=== PATIENT | female | born 1990 | race Caucasian/White ===

== ENCOUNTER → 2017-03-17 | Outpatient (CLI) | payer MEDICARE, OTHER ==
[~2017-03-17] MED LIST: ALBUTEROL0.63 MG/3 INH; ALPRAZOLAM PO; BENADRYL IVP; BREO ELLIPTA 11 EACH INH; CATAPRES0.3 MG PO; DEXILANT60 MG PO; DIAMOX SEQUELS500 MG PO; DICYCLOMINE HCL20 MG PO; DIVALPROEX SOD500 M1 PO; FIORICET 50-301 EACH PO; HYDROCODON-ACE1 EA14 PO; LAMICTAL5 MG PO; LASIX20 MG PO; LEXAPRO20 MG PO; LIDODERM1 EACH; LOMOTIL 2.5-0.1 EACH PO; LOVENOX100 MG/1 M SUBQ; LUNESTA PO; LYRICA100 MG PO; MELATONIN5 M4 PO; MIRAPEX1 MG PO; NAPROXEN PO; NORMAL SALINE IV; OXYGEN; PHENERGAN25 MG PO; PHENERGAN25 MG/1 ML INJ; VITAMIN C250 M1 PO; ZANAFLEX4 M1 PO; ZOFRAN 4 MG4 MG/2 ML INJ; ZOFRAN PO; ZOFRANODT PO
[2017-03-17 12:56] LABS: HEMATOCRIT 38.2 % (35.0-45.0); HEMOGLOBIN 12.7 gm/dL (12.0-16.0); MEAN CELL VOLUME 88.6 FL (83-96); MEAN CORPUSCULAR HEMOGLOBIN 29.4 PG (28-34); MEAN CORPUSCULAR HGB CONC 33.1 g/dL (30-36); MEAN PLATELET VOLUME 7.4 FL (6.5-11.5); RED BLOOD COUNT 4.32 X10e (3.90-5.30); RED CELL DISTRIBUTION WIDTH 15.4 % (11.0-15.5); WHITE BLOOD COUNT 7.5 X10e3 (4.0-10.5)
[2017-03-17 13:14] LABS: PARTIAL THROMBOPLASTIN TIME 30.8 SECONDS (23.5-31.3); PROTHROMBIN TIME (PATIENT) 10.7 SECONDS (9.6-11.5)
== END | disposition home or self-care (01) ==
LOC: CIVR 12:18
PROVIDERS: Ophthalmology
DX: R51 Headache (principal); Z79.01 Long term (current) use of anticoagulants
CPT/HCPCS: 36415; 85027; 85610; 85730

== ENCOUNTER → 2017-03-20 | Outpatient (CLI) | payer MEDICARE, OTHER ==
--- NOTE | ~2017-03-20 | XA198 ---
[facility] A Service of [facility] RADIOLOGY TEXT RESULTS PATIENT: PEGGY ROSE LOCATION: [facility] : 89 UNIT #: [id number] AGE: [address]: Souleymane Renae MD SEX: F ORDER DR: [id number] [facility] [address] [place], [place] [address] [id number] O MR#: [id number] Acc #: [id number] NAME: PEGGY ROSE : 1990 SEX: F STUDY DATE/TIME: 03/20/2017 8:49 UNIT: [facility] ROOM: STUDY DESCRIPTION: XA Spinal Puncture Attending Physician: Souleymane Renae M.D. Ordering Physician: Souleymane Renae M.D. Primary Care Physician: Africa Wong M.D. MEDICAL IMAGING REPORT This report is preliminary unless electronic signature is present EXAM Lumbar puncture under fluoroscopy. HISTORY Headaches and vision changes with acute vision loss. Normal MRI brain. PROCEDURE The patient was placed in the prone position in the angio suite. A site was chosen and at the L3-4 level. The skin was cleansed with chlorhexidine and draped. A 20-gauge spinal needle was advanced into the lumbar subarachnoid space and opening pressure was estimated at 41 cm of water. Approximately 20 mL of clear CSF was collected in 4 tubes. Closing pressure was measured at 33 cm of water. The patient was sent to the short-stay unit, where she will be monitored for 4 hours prior to discharge. Fluoro time 0.6 minutes. Exposure 52 mGy and 1 spot radiograph obtained. CONCLUSION Elevated opening and closing pressures at 41 and 33 cm of water. This is estimated due to the positioning of the patient. The CSF itself appears normal. Dictated by... Evangelista Gallegos M.D. THIS IS AN ELECTRONICALLY VERIFIED REPORT Evangelista Gallegos M.D. at 03/20/2017 4:52 PM YULIET/lesley [facility] A Service of [facility] RADIOLOGY TEXT RESULTS PATIENT: PEGGY ROSE LOCATION: [facility] #: [id number] : [birth year] UNIT #: [id number] AGE: [address]: Souleymane Renae MD SEX: F ORDER DR: TD: 03/20/2017 14:42 JOB #: [id number] MEDICAL IMAGING REPORT Page 1 of 1 COPY
[2017-03-20 07:35] LABS: BASOPHIL% 0.7 % (0-2.5); EOSINOPHIL# 0.1 X10e3 (0-0.7); EOSINOPHIL% 1.6 % (0.0-7.0); HEMATOCRIT 36.7 % (35.0-45.0); HEMOGLOBIN 11.9 gm/dL (12.0-16.0); LYMPHOCYTE# 1.5 X10e3 (1.0-3.5); LYMPHOCYTE% 22.9 % (17.0-45.0); MEAN CELL VOLUME 89.5 FL (83-96); MEAN CORPUSCULAR HEMOGLOBIN 29.1 PG (28-34); MEAN CORPUSCULAR HGB CONC 32.5 g/dL (30-36); MEAN PLATELET VOLUME 7.3 FL (6.5-11.5); MONOCYTE# 0.4 X10e3 (0-1.0); MONOCYTE% 6.5 % (3.0-12.0); NEUTROPHIL# 4.4 X10e3 (1.5-7.1); NEUTROPHIL% 68.3 % (40-75); PLATELET COUNT 269 X10e3 (140-420); RED CELL DISTRIBUTION WIDTH 15.3 % (11.0-15.5); WHITE BLOOD COUNT 6.5 X10e3 (4.0-10.5)
[2017-03-20 07:40] LABS: DIFF IND NO
[2017-03-20 07:53] LABS: PROTHROMBIN TIME (PATIENT) 10.8 SECONDS (9.6-11.5)
[2017-03-20 08:00] LABS: PARTIAL THROMBOPLASTIN TIME 68.8 SECONDS (23.5-31.3)
== END | disposition home or self-care (01) ==
LOC: CIVR 06:44
PROVIDERS: Ophthalmology
PROC: 009U3ZZ Drainage of Spinal Canal, Percutaneous Approach (ICD-10-PCS; principal; 2017-03-20)
DX: H54.7 Unspecified visual loss (principal); R51 Headache
CPT/HCPCS: 77003; 85025; 85610; 85730; C1713

== ENCOUNTER → 2017-03-23 | Outpatient (CLI) | payer MEDICARE, OTHER ==
--- NOTE | ~2017-03-23 | XA198 ---
[facility] A Service of [facility] RADIOLOGY TEXT RESULTS PATIENT: PEGGY ROSE [facility] : 89 UNIT #: [id number] AGE: [address]: Seven Mondragon II, MD SEX: F ORDER DR: [id number] [facility]. [place], [place] [address] [id number] O MR#: [id number] Acc #: [id number] NAME: PEGGY ROSE : 1990 SEX: F STUDY DATE/TIME: 03/23/2017 10:11 UNIT: [facility] ROOM: STUDY DESCRIPTION: XA Spinal Puncture Attending Physician: Seven Mondragon II., M.D. Ordering Physician: Seven Mondragon II., M.D. Primary Care Physician: Africa Wong M.D. MEDICAL IMAGING REPORT This report is preliminary unless electronic signature is present PROCEDURE Fluoroscopically-guided lumbar puncture INDICATIONS Pseudotumor cerebri and headaches. Lumbar puncture requested with a large volume CSF removal in order to have the closing pressure be 16 or less. TECHNIQUE Fluoro time 1.1 minutes. Reference air kerma 218 mGy. Risks, benefits and alternatives of procedure were discussed with the patient. Informed consent was obtained. In the procedure room, time-out was performed confirming correct patient and procedure. All elements of maximum sterile-barrier technique utilized according to guidelines appropriate for the procedure. Patient was placed in the lateral position on the fluoroscopy table. Skin overlying the lumbar spine was prepped and draped in the usual sterile fashion. 1% lidocaine was utilized to anesthetize the skin and underlying subcutaneous tissues. Next, under fluoroscopic guidance, a 20-gauge spinal needle was advanced into the CSF space at the L3 level. There was return of clear CSF. Opening pressure was measured and was 15 cm of water. The pressure was then measured 1 more time independently and again was 15 cm of water. Therefore, no fluid was removed. Needle was removed and a sterile dressing was applied. No immediate complications. IMPRESSION Fluoroscopically-guided lumbar puncture as described. The patient was placed in the true lateral position and the opening pressure was 15 cm of water. No fluid was removed. [facility] A Service of [facility] RADIOLOGY TEXT RESULTS PATIENT: PEGGY ROSE LOCATION: [facility] : 89 UNIT #: [id number] AGE: [address]: Seven Mondragon II, MD SEX: F ORDER DR: Dictated by... Marshal Bustillo M.D. THIS IS AN ELECTRONICALLY VERIFIED REPORT Marshal Bustillo M.D. at 03/24/2017 9:32 AM Renetta TD: 03/23/2017 17:18 JOB #: [id number] MEDICAL IMAGING REPORT Page 1 of 1 COPY
[2017-03-23 09:15] LABS: BASOPHIL% 0.5 % (0-2.5); EOSINOPHIL% 0.3 % (0.0-7.0); HEMATOCRIT 39.2 % (35.0-45.0); LYMPHOCYTE# 1.1 X10e3 (1.0-3.5); LYMPHOCYTE% 15.8 % (17.0-45.0); MEAN CELL VOLUME 88.3 FL (83-96); MEAN CORPUSCULAR HEMOGLOBIN 29.3 PG (28-34); MEAN CORPUSCULAR HGB CONC 33.1 g/dL (30-36); MEAN PLATELET VOLUME 6.9 FL (6.5-11.5); MONOCYTE# 0.3 X10e3 (0-1.0); MONOCYTE% 4.8 % (3.0-12.0); NEUTROPHIL# 5.7 X10e3 (1.5-7.1); NEUTROPHIL% 78.6 % (40-75); PLATELET COUNT 275 X10e3 (140-420); RED BLOOD COUNT 4.44 X10e (3.90-5.30); RED CELL DISTRIBUTION WIDTH 14.9 % (11.0-15.5); WHITE BLOOD COUNT 7.3 X10e3 (4.0-10.5)
[2017-03-23 09:16] LABS: DIFF IND NO
[2017-03-23 09:27] LABS: INR 1.2; PARTIAL THROMBOPLASTIN TIME 39.7 SECONDS (23.5-31.3); PROTHROMBIN TIME (PATIENT) 12.4 SECONDS (9.6-11.5)
== END | disposition home or self-care (01) ==
LOC: CIVR 08:54
PROVIDERS: Psychiatry & Neurology Neurology
PROC: 009U3ZX Drainage of Spinal Canal, Percutaneous Approach, Diagnostic (ICD-10-PCS; principal; 2017-03-23)
DX: G93.2 Benign intracranial hypertension (principal); Z79.899 Other long term (current) drug therapy
CPT/HCPCS: 77003; 85025; 85610; 85730; C1713; J1200; J2550

== ENCOUNTER → 2017-03-28 | Outpatient (CLI) | payer MEDICARE, OTHER | END | disposition home or self-care (01) | LOC: CSSDAY 13:59 | DX: R51 Headache (principal); Z79.899 Other long term (current) drug therapy | CPT/HCPCS: 96365; 96374; 96375; J1200; J2550 ==

== ENCOUNTER → 2017-05-10 | Outpatient (CLI) | payer MEDICARE, OTHER ==
--- NOTE | ~2017-05-10 | XA198 ---
[facility] A Service of [facility] RADIOLOGY TEXT RESULTS PATIENT: PEGGY ROSE LOCATION: [facility] : 89 UNIT #: [id number] AGE: [address]: Seven Mondragon II, MD SEX: F ORDER DR: [id number] [id number] [facility]. [place], [place] [address] [id number] O MR#: [id number] Acc #: [id number] NAME: PEGGY ROSE : 1990 SEX: F STUDY DATE/TIME: 05/10/2017 10:18 UNIT: [facility] ROOM: STUDY DESCRIPTION: XA Spinal Puncture Attending Physician: Seven Mondragon II., M.D. Ordering Physician: Seven Mondragon II., M.D. Primary Care Physician: Africa Wong M.D. MEDICAL IMAGING REPORT This report is preliminary unless electronic signature is present EXAM Lumbar puncture under fluoroscopy. DATE OF STUDY 05/10/2017 COMPARISON STUDIES 03/23/2017 HISTORY Pseudotumor cerebri with headaches. PROCEDURE Procedure, attendant risks, and options were discussed with the patient. She understands and wishes to proceed. Prior to the procedure, IV access was obtained in the right antecubital fossa for medications ordered by her physician. This was performed under ultrasound guidance and fluoroscopy. Patient was placed in the prone position and the skin was prepped with chlorhexidine solution and appropriately draped. Utilizing maximal sterile barrier technique and under local anesthesia, a 20-guage spinal needle was inserted in the lumbar subarachnoid space at the L3-4 level. Opening pressure was measured at 39 cm of water. Approximately 35 mL of clear CSF was removed. Closing pressure was 18 cm of water. The patient could not tolerate additional withdrawal of fluid due to worsening headaches. Needle was removed. Hemostasis achieved and the patient was returned to the short stay unit where she will be monitored prior to discharge. Total fluoroscopy time was 1.1 minutes. Total skin exposure estimated at 145 mGy air kerma standard. CONCLUSION Successful therapeutic lumbar puncture, opening pressure of 39, closing [facility] A Service of [facility] RADIOLOGY TEXT RESULTS PATIENT: PEGGY ROSE LOCATION: [facility] : 89 UNIT #: [id number] AGE: [address]: Seven Mondragon II, MD SEX: F ORDER DR: pressure of 18 (the patient would not tolerate additional withdrawal of CSF). Dictated by... Evangelista Gallegos M.D. THIS IS AN ELECTRONICALLY VERIFIED REPORT Evangelista Gallegos M.D. at 05/11/2017 7:14 AM YULIET/lesley TD: 05/10/2017 15:12 JOB #: [id number] MEDICAL IMAGING REPORT Page 1 of 1 COPY
== END | disposition home or self-care (01) ==
LOC: CIVR 09:33
PROC: 009U3ZZ Drainage of Spinal Canal, Percutaneous Approach (ICD-10-PCS; principal; 2017-05-10)
DX: G93.2 Benign intracranial hypertension (principal); Z79.899 Other long term (current) drug therapy
CPT/HCPCS: 77003; C1894; J1200; J2550

== ENCOUNTER → 2017-07-03 | Outpatient (CLI) | payer MEDICARE, OTHER ==
--- NOTE | ~2017-07-03 | XA198 ---
[facility] A Service of [facility] RADIOLOGY TEXT RESULTS PATIENT: PEGGY ROSE LOCATION: [facility] : 89 UNIT #: [id number] AGE: [address]: Seven Mondragon II, MD SEX: F ORDER DR: [id number] [facility]. [place], [place] [address] [id number] O MR#: [id number] Acc #: [id number] NAME: PEGGY ROSE : 1990 SEX: F STUDY DATE/TIME: 07/03/2017 8:06 UNIT: [facility] ROOM: STUDY DESCRIPTION: XA Spinal Puncture Attending Physician: Seven Mondragon II., M.D. Referring Physician: Seven Mondragon II., M.D. Ordering Physician: Seven Mondragon II., M.D. Primary Care Physician: Africa Wong M.D. MEDICAL IMAGING REPORT This report is preliminary unless electronic signature is present EXAM Fluoroscopically-guided lumbar puncture INDICATION Pseudotumor cerebri. The patient's most recent lumbar puncture was performed 05/10/2017. PROCEDURE There risks, benefits, and alternatives to the procedure were explained to the patient, and signed, informed consent was obtained. She was placed prone on the angiographic table was prepped and draped in usual sterile fashion. Time-out was performed as per protocol skin and subcutaneous tissues were anesthetized with buffered lidocaine and a 22-gauge spinal needle was advanced into the spinal canal. Removal of the inner stylet yielded spontaneous drainage of clear CSF opening pressure was found to be 34 I removed approximately 30 mL of clear CSF and closing pressure was 15. Total fluoroscopy time was 0.9 minutes AK was 143 mGy. IMPRESSION Technically successful fluoroscopically-guided lumbar puncture as noted above. Fluoroscopy was used during the procedure and permanent images were saved. Dictated by... Lizz Whitley M.D. THIS IS AN ELECTRONICALLY VERIFIED REPORT Lizz Whitley M.D. at 07/05/2017 4:18 PM AFF/rnr TD: 07/05/2017 13:21 JOB #: [id number] [facility] A Service of [facility] RADIOLOGY TEXT RESULTS PATIENT: PEGGY ROSE LOCATION: [facility] : 89 UNIT #: [id number] AGE: [address]: Seven Mondragon II, MD SEX: F ORDER DR: MEDICAL IMAGING REPORT Page 1 of 1 COPY
[2017-07-03 07:51] LABS: HEMATOCRIT 38.4 % (35.0-45.0); HEMOGLOBIN 12.8 gm/dL (12.0-16.0); MEAN CELL VOLUME 88.8 FL (83-96); MEAN CORPUSCULAR HEMOGLOBIN 29.6 PG (28-34); MEAN CORPUSCULAR HGB CONC 33.3 g/dL (30-36); MEAN PLATELET VOLUME 7.9 FL (6.5-11.5); RED BLOOD COUNT 4.32 X10e (3.90-5.30); RED CELL DISTRIBUTION WIDTH 14.8 % (11.0-15.5); WHITE BLOOD COUNT 5.9 X10e3 (4.0-10.5)
[2017-07-03 09:51] LABS: INR 1.1; PARTIAL THROMBOPLASTIN TIME 27.3 SECONDS (23.5-31.3); PROTHROMBIN TIME (PATIENT) 11.4 SECONDS (10.0-11.7)
== END | disposition home or self-care (01) ==
LOC: CIVR 07:22
PROVIDERS: Psychiatry & Neurology Neurology
DX: G93.2 Benign intracranial hypertension (principal)
CPT/HCPCS: 77003; 85027; 85610; 85730; C1713; J1200; J2405; J2550

== ENCOUNTER → 2017-07-11 | Outpatient (CLI) | payer MEDICARE, OTHER ==
--- NOTE | ~2017-07-11 | XA198 ---
[facility] A Service of [facility] RADIOLOGY TEXT RESULTS PATIENT: PEGGY ROSE LOCATION: [facility] : 89 UNIT #: [id number] AGE: [address]: Seven Mondragon II, MD SEX: F ORDER DR: [id number] [facility] [place] [facility]. [place], [place] [address] [id number] O MR#: [id number] Acc #: [id number] NAME: PEGGY ROSE : 1990 SEX: F STUDY DATE/TIME: 07/11/2017 8:07 UNIT: [facility] ROOM: STUDY DESCRIPTION: XA Spinal Puncture Attending Physician: Seven Mondragon II., M.D. Referring Physician: Seven Mondragon II., M.D. Ordering Physician: Seven Mondragon II., M.D. Primary Care Physician: Africa Wong M.D. MEDICAL IMAGING REPORT This report is preliminary unless electronic signature is present EXAM Fluoroscopically-guided lumbar puncture INDICATION Pseudotumor cerebri. Patient actually underwent a lumbar puncture on July 03, 2017 with removal of 30 mL of CSF. She has developed recurrent symptoms and has been referred for repeat lumbar puncture. PROCEDURE The risks, benefits, and alternatives to the procedure were explained to the patient, and signed, informed consent was obtained. Patient was placed prone on the angiographic table and was prepped and draped in the usual sterile fashion. Time-out was performed as per protocol. Skin and subcutaneous tissues were anesthetized with buffered lidocaine and a 20-gauge spinal needle was advanced into the spinal canal. Inner stylet was removed which yielded spontaneous drainage of minimally blood-tinged CSF. Opening pressure was obtained and was found to be 31. I subsequently removed approximately 32 mL of CSF. Closing pressure was found to be 15. Procedure was subsequently terminated. Total fluoroscopy time was 1 minute. IMPRESSION Technically successful fluoroscopically guided lumbar puncture. Opening pressure was found to be 31. Closing pressure was 15 and I removed 32 mL of CSF. Fluoroscopy was used during the procedure and permanent images were saved. Dictated by... Lizz Whitley M.D. [facility] A Service of [facility] RADIOLOGY TEXT RESULTS PATIENT: PEGGY ROSE LOCATION: [facility] : 89 UNIT #: [id number] AGE: [address]: Seven Mondragon II, MD SEX: F ORDER DR: THIS IS AN ELECTRONICALLY VERIFIED REPORT Lizz Whitley M.D. at 07/12/2017 5:13 PM AFF/jake TD: 07/12/2017 09:26 JOB #: [id number] MEDICAL IMAGING REPORT Page 1 of 1 COPY
[2017-07-11 08:16] LABS: BASOPHIL% 0.2 % (0-2.5); EOSINOPHIL# 0.1 X10e3 (0-0.7); EOSINOPHIL% 0.7 % (0.0-7.0); HEMATOCRIT 36.4 % (35.0-45.0); HEMOGLOBIN 12.2 gm/dL (12.0-16.0); LYMPHOCYTE# 1.3 X10e3 (1.0-3.5); LYMPHOCYTE% 17.3 % (17.0-45.0); MEAN CELL VOLUME 87.7 FL (83-96); MEAN CORPUSCULAR HEMOGLOBIN 29.4 PG (28-34); MEAN CORPUSCULAR HGB CONC 33.5 g/dL (30-36); MEAN PLATELET VOLUME 8.3 FL (6.5-11.5); MONOCYTE# 0.5 X10e3 (0-1.0); MONOCYTE% 7.4 % (3.0-12.0); NEUTROPHIL# 5.4 X10e3 (1.5-7.1); NEUTROPHIL% 74.4 % (40-75); PLATELET COUNT 208 X10e3 (140-420); RED BLOOD COUNT 4.15 X10e (3.90-5.30); RED CELL DISTRIBUTION WIDTH 14.5 % (11.0-15.5); WHITE BLOOD COUNT 7.2 X10e3 (4.0-10.5)
[2017-07-11 08:18] LABS: DIFF IND NO
[2017-07-11 08:30] LABS: INR 1.3; PROTHROMBIN TIME (PATIENT) 13.7 SECONDS (10.0-11.7)
[2017-07-11 08:38] LABS: PARTIAL THROMBOPLASTIN TIME 58.3 SECONDS (23.5-31.3)
== END | disposition home or self-care (01) ==
LOC: CIVR 07:30
PROVIDERS: Psychiatry & Neurology Neurology
PROC: 009U3ZZ Drainage of Spinal Canal, Percutaneous Approach (ICD-10-PCS; principal; 2017-07-11)
DX: G93.2 Benign intracranial hypertension (principal)
CPT/HCPCS: 77003; 85025; 85610; 85730; C1713; J1200; J2550